=== PATIENT | male | born 1985 | race Caucasian/White ===

== ENCOUNTER 2019-03-06 13:55 | Emergency (ER) | payer BC, MEDICARE, MEDICAID ==
[2019-03-06] MEDS ORDERED: DIAZEPAM 5 MG TABLET PO ONE (14:28)
--- NOTE | 2019-03-06 14:33 | Emergency Department Record ---
History of Present Illness - General Chief complaint: Male Urogenital Problem Stated complaint: CAN'T URINATE Time Seen by Provider: 03/06/19 14:22 Source: Patient Mode of Arrival: Ambulatory Limitations: No limitations - History of Present Illness Initial comments: The patient is here due to being unable to urinate today. He has had some lower abdominal pain also. The patient does have a hx of significant developmental delay and seizures. There has been no hx of fever, nausea, vomiting, or diarrhea. He has had no recent illnesses and no new medicines. MD Complaint: Other Onset/Timin -: Days(s) Reports: Denies other symptoms - Related Data Home Medications Medication Instructions Recorded Confirmed Last Taken Lisinopril 20 mg PO DAILY 03/06/19 03/06/19 Unknown Rosuvastatin Calcium 5 mg PO DAILY 03/06/19 03/06/19 Unknown Previous Rx's Medication Instructions Recorded Ibuprofen [Motrin] 800 mg PO TID PRN #20 tab 03/06/19 Ibuprofen [Motrin] 800 mg PO TID PRN #20 tab 03/06/19 Tamsulosin HCl [Flomax] 0.4 mg PO DAILY #7 cap.er.24h 03/06/19 Tamsulosin HCl [Flomax] 0.4 mg PO DAILY #7 cap.er.24h 03/06/19 Allergies Allergy/AdvReac Type Severity Reaction Status Date / Time No Known Drug Allergies Allergy Verified 03/06/19 14:20 Travel Screening - Travel/Exposure Within Last 30 Days Have you traveled within the last 30 days?: No Review of Systems Constitutional: Denies: Chills, Fever Eyes: Denies: Eye discharge ENT: Denies: Congestion Respiratory: Denies: Cough, Dyspnea Past Medical History - SOCIAL HISTORY Smoking Status: Never smoker Alcohol Use: None Drug Use: None - RESPIRATORY Hx Respiratory Disorders: No - CARDIOVASCULAR Hx Cardio Disorders: Yes Hx Hypertension: Yes 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 - NEURO Hx Neuro Disorders: Yes Hx Seizures: Yes - GI Hx GI Disorders: No - Hx Genitourinary Disorders: No - ENDOCRINE Hx Endocrine Disorders: No - MUSCULOSKELETAL Hx Musculoskeletal Disorders: No - PSYCH Hx Psych Problems: No - HEMATOLOGY/ONCOLOGY Hx Hematology/Oncology Disorders: Yes Hx Cancer: Yes (Melanoma) Hx Chemotherapy: No Hx Radiation Therapy: No Family Medical History Any Significant Family History?: Yes Hx Cancer: Grandparents Hx Heart Disease: Father, Grandparents Hx Kidney Disease: Grandparents Physical Exam - General General Appearance: Alert, Cooperative, No acute distress - Head Head exam: Atraumatic - Eye Eye exam: Normal appearance - Neck Neck exam: Normal inspection, Full ROM. negative: Tenderness - Respiratory Respiratory exam: Normal lung sounds bilaterally. negative: Respiratory distress - Cardiovascular Cardiovascular Exam: Regular rate, Normal rhythm, Normal heart sounds - GI/Abdominal GI/Abdominal exam: Soft, Normal bowel sounds. negative: Tenderness - exam: Circumcision, Normal inspection. negative: Scrotal swelling, Testicular tenderness, Urethral discharge - Extremities Extremities exam: Normal inspection, Full ROM, Normal capillary refill. negative: Tenderness - Neurological Neurological exam: Alert. negative: Motor sensory deficit Course Vital Signs 03/06/19 14:16 Pulse Rate 84 Respiratory 18 Rate Blood Pressure 166/105 Pulse Ox 99 - Reevaluation(s) Reevaluation #1: After being brought back to his room he did go into the bathroom with dad and did urinate normally. Dad states he did urinate a large amount. 03/06/19 14:33 Reevaluation #2: The patient is doing a lot better at this time. He is up walking with no pain or discomfort. We are still waiting on the CT results at this time. 03/06/19 16:22 Reevaluation #3: The patient is doing very well at this time. He denies any pain or discomfort. I did discuss the CT report with the family and did discuss the need for F/U with Urology. I also did discuss the case with Dr. Mcpherson and he would like the patient to see Dr. Avila. I attempted to contact Dr. Avila but he is in surgery so he will call back later. 03/06/19 16:38 Medical Decision Making - Data Complexity MDM Data: Labs Ordered and/or Reviewed, X-Ray Ordered and/or Reviewed - Lab Data Result diagrams: 03/06/19 15:10 03/06/19 15:10 - Radiology Data Radiology results: Report reviewed (CT: 2 distal L ureter stones with mild [place]. stones 2.6 and 5.1 mm size. ) Disposition Disposition: Discharge Clinical Impression: Ureteral colic Disposition: Home, Self-Care Condition: (2) Stable Instructions: Renal Colic (ED) Additional Instructions: Please drink plenty of fluids and strain the urine when possible. Please take Motrin for pain and FLomax as directed until the stone is passed then you can stop. Please see Dr. Avila for recheck and return to the ER for any worsening pain, any fever, or vomiting. Prescriptions: Tamsulosin HCl [Flomax] 0.4 mg PO DAILY #7 cap.er.24h Tamsulosin HCl [Flomax] 0.4 mg PO DAILY #7 cap.er.24h Ibuprofen [Motrin] 800 mg PO TID PRN #20 tab PRN Reason: Pain Ibuprofen [Motrin] 800 mg PO TID PRN #20 tab PRN Reason: Pain Referrals: CHE SON [MEDICAL DOCTOR] - Forms: Patient Portal Access Time of Disposition: 16:41 Quality - Quality Measures Quality Measures: N/A - Blood Pressure Screening View Details: Yes Does Patient Have Any of the Following: No Blood Pressure Classification: Hypertensive Reading Systolic Measurement: 145 Diastolic Measurement: 94 Screening for High Blood Pressure: < First Hypertensive BP, F/U Documented > [G8950] First Hypertensive Follow-up Interventions: Referral to alternative/primary care provider.
[2019-03-06 14:40] LABS: URINE BILIRUBIN NEGATIVE (NEGATIVE); URINE BLOOD LARGE (NEGATIVE); URINE COLOR YELLOW; URINE GLUCOSE (UA) NEGATIVE (NEGATIVE); URINE KETONE NEGATIVE (NEGATIVE); URINE LEUKOCYTE ESTERASE NEGATIVE (NEGATIVE); URINE NITRITE NEGATIVE (NEGATIVE); URINE PROTEIN NEGATIVE (NEGATIVE); URINE UROBILINOGEN 0.2 E.U./dL (0.20 - 1.00)
[2019-03-06 14:42] LABS: URINE APPEARANCE SL CLOUDY
[2019-03-06 14:49] LABS: URINE EPITHELIAL CELLS NONE SEEN (FEW); URINE RBC >50 (NONE SEEN); URINE WBC NONE SEEN (0-2/hpf)
[2019-03-06 15:20] LABS: ABSOLUTE NEUTROPHIL COUNT 5.25; BASO % 0.1 % (0-6); EOS % 0.7 % (0-6); GRAN % 74.4 % (47-80); HEMATOCRIT 41.7 % (42.0-52.0); HEMOGLOBIN 14.8 gm/dl (14.0-18.0); LYMPH % 16.9 % (16-45); MEAN CORPUSCULAR HEMOGLOBIN 31.2 pg (27-33); MEAN CORPUSCULAR HGB CONC 35.5 g/dl (32-36); MEAN PLATELET VOLUME 9.6 fl (7.4-10.4); MONO % 7.9 % (0-9); PLATELET COUNT 302 K/uL (130-400); RED BLOOD COUNT 4.74 M/uL (4.40-5.70); WHITE BLOOD COUNT W/O DIFF 7.1 K/uL (4.2-12.2)
[2019-03-06 15:29] LABS: BLOOD UREA NITROGEN 18 mg/dL (6-20); CREATININE 1.1 mg/dL (0.7-1.2); EST GLOMERULAR FILTRATION RATE > 60 mL/min
[2019-03-06 15:32] LABS: GLUCOSE,RANDOM 113 mg/dL (74-109)
--- NOTE | 2019-03-06 16:18 | CT SCAN REPORT ---
EXAMINATION: CT Abdomen and Pelvis without IV Contrast EXAM DATE: 03/06/2019 3:53 PM TECHNIQUE: Standard protocol CT imaging of the abdomen and pelvis was performed without intravenous c ontrast. INDICATION: hematuria COMPARISON: Abdomen ultrasound 04/14/2015 ENCOUNTER: Not applicable CT ABDOMEN AND PELVIS FINDINGS: Lung Bases: Included extent of the lung bases are clear. Hepatobiliary: The liver has a normal size with a smooth surface. Normal gallbladder Pancreas: The pancreas is normal. Spleen: The spleen is not enlarged. Adrenals: The adrenal glands are normal. Kidneys, Ureters, & Bladder: Multiple bilateral intrarenal nonobstructing calculi. Mild left hydronep hrosis 2 obstructing calculi distal ureter just above UVJ 2.6 mm and 5.1 mm. Mild bladder wall thic [place] Gastrointestinal: The stomach and small bowel are normal with no obstruction or inflammation. Normal appendix. The large bowel is within normal limits. Reproductive Organs: Unremarkable Lymphatic System: There is no adenopathy within the abdomen or pelvis. Vasculature: Normal caliber abdominal aorta Peritoneum: No free fluid, free air, or inflammation Abdominal wall & Musculoskeletal: No suspicious bone lesions. Assessment of the solid organs, soft tissues, and vascular structures is overall limited on noncontra st imaging, IMPRESSION: 1. Multiple bilateral intrarenal calculi 2. Mild left hydronephrosis 2 obstructing calculi distal ureter 3. Mild bladder wall thickening Dictated by: Raymond Lomax MD on 03/06/2019 4:10 PM. .
== END 2019-03-06 16:54 | disposition home or self-care (01) ==
LOC: ER 13:55
DX: N13.2 Hydronephrosis with renal and ureteral calculous obstruction (principal); R39.198 Other difficulties with micturition; I10 Essential (primary) hypertension
CPT/HCPCS: 74176; 80048; 81001; 85025; 99284